=== PATIENT | female | born 1990 | race American Indian/Alaskan Native ===

== ENCOUNTER 2020-06-14 16:15 | Inpatient (IN) | payer BC ==
[2020-06-14] MEDS ORDERED: D5LR W/KCL 20 MEQ 20 MEQ/1,000 ML BAG IV SCH (17:00)
[2020-06-14] MEDS ORDERED: ALUM-MAG HYDROXIDE-SIMETHICONE 200-200-20MG/5ML ORAL LIQD 30 ML PO PRN (19:07)
[2020-06-14 20:15] LABS: Basophils % (Auto) 0.2 % (0.0-1.8); Eosinophils % (Auto) 0.2 % (0.0-4.3); Hematocrit 35.1 % (30.3-42.9); Hemoglobin 11.5 gm/dl (10.1-14.3); Lymphocytes # (Auto) 1.1 K/mm3 (1.2-5.4); Lymphocytes % (Auto) 17.9 % (13.4-35.0); Mean Corpuscular HGB Conc 33 % (30-34); Mean Corpuscular Volume 76 fl (79-97); Monocytes # (Auto) 0.6 K/mm3 (0.0-0.8); Monocytes % (Auto) 9.4 % (0.0-7.3); Platelet Count 239 K/mm3 (140-440)
[2020-06-14] MEDS: LIDOCAINE VISCOUS 2% 15 ML ORAL LIQD PO PRN (20:24)
--- NOTE | 2020-06-14 20:24 | Ultrasound Report ---
OB Ultrasound HISTORY: Hyperemesis, 15 wks, Viability. TECHNIQUE: Grayscale and color imaging performed. COMPARISON: None FINDINGS: Transabdominal imaging was performed. There is a single viable intrauterine gestation with breech presentation. Heart rate is 147 bpm. Plac enta is seen along the fundus. Overall EGA of the fetus is 15 weeks and 4 days by ultrasound with est imated delivery date of 12/02/2020. These findings compare with a clinical gestational age of 15 weeks and 3 days. The cervical length is 4.4 cm. No anatomic survey was performed. MIGUEL is subjectively wit hin normal limits. There is a large fibroid left of midline with heterogeneous appearance and measuring up to 10 cm in m aximal dimension. IMPRESSION: 1. Single viable intrauterine gestation. 2. Large fibroid left of midline. Signer Name: Campbell Us MD Signed: 06/14/2020 8:19 PM Workstation Name: [id number]
[2020-06-14] MEDS: D5W/LACTATED RINGERS 1,000 ML IV SCH ×2 (20:27→23:41)
[2020-06-14] MEDS: METOCLOPRAMIDE 10 MG/2 ML INJ IV SCH (20:28)
[2020-06-14 20:32] LABS: Alanine Aminotransferase 81 units/L (7-56); Albumin 3.1 g/dL (3.9-5); Blood Urea Nitrogen 3 mg/dL (7-17); Calcium 9.2 mg/dL (8.4-10.2); Hemolysis Index 142
[2020-06-14] MEDS: PROMETHAZINE 25 MG RECT SUPP PR SCH (20:32)
[2020-06-14 20:40] LABS: BUN/Creatinine Ratio 8
[2020-06-14 20:56] LABS: Hepatitis B Surface Antigen Non-Reactive (Negative); Hepatitis C Virus Antibody Non-Reactive (NonReactive)
[2020-06-14] MEDS: POTASSIUM CHLORIDE 10 MEQ 10 MEQ/100 ML BAG IV SCH ×2 (22:15→23:41)
[2020-06-15] MEDS: PROMETHAZINE 25 MG RECT SUPP PR SCH ×5 (00:04→21:30)
[2020-06-15] MEDS: METOCLOPRAMIDE 10 MG/2 ML INJ IV SCH ×5 (00:04→21:30)
[2020-06-15] MEDS: POTASSIUM CHLORIDE 10 MEQ 10 MEQ/100 ML BAG IV SCH ×5 (01:13→23:35)
[2020-06-15 01:19] LABS: Bacteria,Urine 1+ /HPF (Negative); Bilirubin,Urine NEG (Negative); Blood,Urine NEG (Negative); Color,Urine Amber (Yellow); Mucus,Urine 3+ /HPF
--- NOTE | 2020-06-15 08:30 | History and Physical Report ---
History of Present Illness Date of examination: 06/15/20 Date of admission: 06/14/20 17:23 Chief complaint: Sent from office for nausea and vomiting without relief from Zofran pump History of present illness: Pt is a 29 yo at 15w4d EGA who presents from [facility] for management of hyperemesis gravidarum. She reports persistent vomiting not relie patsy by Zofran pump or Scopolamine patch. IV Reglan has provided some relief, as has rectal Phenergan. She has lost 9 pounds this . She has received D5LR overnight, as well as IV Reglan and MD Phenergan, with no episodes of vomiting overnight. She is currently eating ice chips. Past History Past Medical History: no pertinent history Past Surgical History: no surgical history Family/Genetic History: none Social history: no significant social history - Obstetrical History Expected Date of Delivery: 12/03/20 Actual Gestation: 15 Week(s) 4 Day(s) : 3 Para: 0 Hx # Term Pregnancies: 0 Number of Pregnancies: 0 Spontaneous Abortions: 0 Induced : 2 Number of Living Children: 0 Medications and Allergies Allergies Allergy/AdvReac Type Severity Reaction Status Date / Time No Known Allergies Allergy Verified 07/30/14 10:24 Home Medications Medication Instructions Recorded Confirmed Last Taken Type No Known Home Medications [No 07/30/14 07/30/14 Unknown History Reported Home Medications] Active Meds: Active Medications Al Hydrox/Mg Hydrox/Simethicone (Alum-Mag Hydroxide-Simethicone [phone]/5ml Oral Liqd 30 Ml) 15 ml PO Q4H PRN PRN Reason: Indigestion Bisacodyl (Bisacodyl 10 Mg Rect Supp) 10 mg MD QDAY PRN PRN Reason: Constipation Last Admin: 06/14/20 22:33 Dose: 10 mg Documented by: Dextrose/Lactated Ringer's (D5lr) 1,000 mls @ 500 mls/hr IV DIRECT ADITYA Stop: 06/15/20 18:59 Last Admin: 06/14/20 23:41 Dose: 500 mls/hr Documented by: Dextrose/Lactated Ringer's (D5lr) 1,000 mls @ 150 mls/hr IV DIRECT ADITYA Lidocaine HCl (Lidocaine Viscous 2% 15 Ml Oral Liqd) 15 ml PO Q8HR PRN PRN Reason: Mouth Pain Last Admin: 06/14/20 20:24 Dose: 15 ml Documented by: Metoclopramide HCl (Metoclopramide 10 Mg/2 Ml Inj) 10 mg IV Q6H [facility] Last Admin: 06/15/20 02:52 Dose: 10 mg Documented by: Multivitamins/Iron/Calcium ( Wst14-Yt Fumarate-Folic Acid Vit Tab) 1 each PO QDAY [facility] Ondansetron HCl (Ondansetron 4 Mg/2 Ml Inj) 4 mg IV Q6H PRN PRN Reason: N/V unrelieved by Ailyn Promethazine HCl (Promethazine 25 Mg Rect Supp) 25 mg MD Q6H [facility] Last Admin: 06/15/20 02:52 Dose: 25 mg Documented by: Review of Systems All systems: negative Ears, nose, mouth and throat: sore throat (secondary to vomiting) Cardiovascular: no chest pain Respiratory: no shortness of breath Gastrointestinal: no vomiting (none today), no hematemesis (a few days ago, not presently) Genitourinary: no vaginal bleeding, no vaginal discharge, no leakage of fluid, no contractions - Vital Signs Vital signs: Vital Signs Temp Pulse Resp BP Pulse Ox 98.8 F 94 H 18 116/60 100 06/14/20 20:45 06/14/20 20:45 06/14/20 20:45 06/14/20 20:45 06/14/20 20:45 Temp Pulse Resp BP Pulse Ox 98.0 F 74 17 110/66 99 06/15/20 06:20 06/15/20 06:20 06/15/20 06:20 06/15/20 06:20 06/15/20 06:20 - Physical Exam Abdomen: Positive: soft Uterus: Positive: enlarged (16 weeks) Extremities: Positive: normal Results Result Diagrams: 06/14/20 19:05 06/15/20 07:26 Abnormal lab results 06/14/20 06/14/20 06/15/20 Range/Units 19:05 19:05 07:26 MCV 76 L (79-97) fl MCH 25 L (28-32) pg RDW 17.0 H (13.2-15.2) % [place] % (Auto) 9.4 H (0.0-7.3) % Lymph # (Auto) 1.1 L (1.2-5.4) K/mm3 Seg Neutrophils % 72.3 H (40.0-70.0) % Sodium 136 L (137-145) mmol/L Potassium 3.0 L 2.8 L* (3.6-5.0) mmol/L BUN 3 L (7-17) mg/dL Creatinine 0.4 L (0.6-1.2) mg/dL AST 69 H (5-40) units/L ALT 81 H (7-56) units/L Albumin 3.1 L (3.9-5) g/dL All other labs normal. Assessment and Plan A: 29 yo at 15w4d EGA Hyperemesis gravidarum Potassium deficiency s/p repletion therapy Vital signs stable P: Continue IV Reglan and MD Phenergan, IV fluids Ketones q12hr Repeat Potassium lab Closely monitor clinical status
[2020-06-15] MEDS: LIDOCAINE VISCOUS 2% 15 ML ORAL LIQD PO PRN (08:50)
[2020-06-15] MEDS: ONDANSETRON 4 MG/2 ML INJ IV PRN (12:00)
[2020-06-15] MEDS: D5W/LACTATED RINGERS 1,000 ML IV SCH (15:27)
[2020-06-16] MEDS: POTASSIUM CHLORIDE 10 MEQ 10 MEQ/100 ML BAG IV SCH ×5 (00:45→15:03)
[2020-06-16] MEDS: METOCLOPRAMIDE 10 MG/2 ML INJ IV SCH ×6 (05:53→22:30)
[2020-06-16] MEDS: PROMETHAZINE 25 MG RECT SUPP PR SCH ×4 (05:53→18:02)
[2020-06-16] MEDS: D5W/LACTATED RINGERS 1,000 ML IV SCH (07:42)
[2020-06-16] MEDS: PRENATAL VIT27-FE FUMARATE-FOLIC ACID VIT TAB PO SCH ×2 (08:23→10:50)
[2020-06-16] MEDS: LIDOCAINE VISCOUS 2% 15 ML ORAL LIQD PO PRN (09:23)
[2020-06-16] MEDS: ONDANSETRON 4 MG/2 ML INJ IV PRN (09:37)
[2020-06-16 10:13] LABS: Alanine Aminotransferase 85 units/L (7-56); Albumin 2.7 g/dL (3.9-5); Calcium 8.6 mg/dL (8.4-10.2); Hemolysis Index 2
[2020-06-16 10:14] LABS: BUN/Creatinine Ratio 3; Blood Urea Nitrogen < 1 mg/dL (7-17)
[2020-06-16] MEDS ORDERED: FLEET ENEMA PR ONE (11:50)
--- NOTE | 2020-06-16 11:50 | Progress Note ---
Subjective - Subjective Date of service: 06/16/20 Objective - Vital Signs Vital Signs: Vital Signs - 12hr 06/16/20 06/16/20 06/16/20 01:36 05:51 08:33 Temperature 98.6 F 99.0 F 98.8 F Pulse Rate 83 84 72 Respiratory 18 16 18 Rate Blood Pressure 103/60 98/61 93/55 O2 Sat by Pulse 99 97 96 Oximetry - Labs Labs: Abnormal Labs 06/14/20 06/14/20 06/15/20 19:05 19:05 07:26 MCV 76 L MCH 25 L RDW 17.0 H [place] % (Auto) 9.4 H Lymph # (Auto) 1.1 L Seg Neutrophils % 72.3 H Sodium 136 L Potassium 3.0 L 2.8 L* BUN 3 L Creatinine 0.4 L Glucose AST 69 H ALT 81 H Total Protein Albumin 3.1 L 06/15/20 06/16/20 06/16/20 15:37 07:35 09:30 MCV MCH RDW [place] % (Auto) Lymph # (Auto) Seg Neutrophils % Sodium 133 L Potassium 2.6 L* 2.8 L* 3.2 L BUN < 1 L Creatinine 0.4 L Glucose 102 H AST 47 H ALT 85 H Total Protein 5.8 L Albumin 2.7 L Laboratory Results - last 24 hr 06/15/20 06/15/20 06/15/20 15:37 22:00 Unknown Sodium Potassium 2.6 L* Chloride Carbon Dioxide Anion Gap BUN Creatinine Estimated GFR BUN/Creatinine Ratio Glucose Calcium Total Bilirubin AST ALT Alkaline Phosphatase Total Protein Albumin Albumin/Globulin Ratio Urine Ketones Negative 80 06/16/20 06/16/20 07:35 09:30 Sodium 133 L Potassium 2.8 L* 3.2 L Chloride 100.0 Carbon Dioxide 27 Anion Gap 9 BUN < 1 L Creatinine 0.4 L Estimated GFR > 60 BUN/Creatinine Ratio 3 Glucose 102 H Calcium 8.6 Total Bilirubin 0.20 AST 47 H ALT 85 H Alkaline Phosphatase 59 Total Protein 5.8 L Albumin 2.7 L Albumin/Globulin Ratio 0.9 Urine Ketones
[2020-06-16] MEDS: MAGNESIUM HYDROXIDE (MOM) ORAL LIQD UDC PO PRN (13:24)
[2020-06-16] MEDS: HYDROCORTISONE SOD SUCC 100 MG/2 ML VIAL IV SCH ×2 (15:03→22:11)
[2020-06-16] MEDS ORDERED: TERBUTALINE 1 MG/1 ML INJ SUB-Q PRN (20:08)
[2020-06-16] MEDS ORDERED: BUTORPHANOL 2 MG/1 ML INJ IV PRN (20:13)
[2020-06-16] MEDS ORDERED: TERBUTALINE 1 MG/1 ML INJ ONE (20:16)
[2020-06-16 21:02] LABS: Alanine Aminotransferase 88 units/L (7-56); Albumin 2.8 g/dL (3.9-5); Calcium 9.1 mg/dL (8.4-10.2); Hemolysis Index 25
[2020-06-16 21:04] LABS: BUN/Creatinine Ratio 2; Blood Urea Nitrogen 1 mg/dL (7-17)
[2020-06-17] MEDS: PROMETHAZINE 25 MG RECT SUPP PR SCH ×4 (02:49→23:00)
[2020-06-17] MEDS ORDERED: MORPHINE 2 MG/1 ML INJ IM ONE (07:53)
[2020-06-17] MEDS ORDERED: MORPHINE 4 MG/1 ML INJ ONE (07:56)
[2020-06-17] MEDS: HYDROCORTISONE SOD SUCC 100 MG/2 ML VIAL IV SCH ×2 (08:32→22:30)
[2020-06-17] MEDS: METOCLOPRAMIDE 10 MG/2 ML INJ IV SCH ×2 (12:07→20:20)
[2020-06-17] MEDS: PRENATAL VIT27-FE FUMARATE-FOLIC ACID VIT TAB PO SCH (12:08)
--- NOTE | 2020-06-17 14:59 | Progress Note ---
Assessment and Plan A: IUP at 15w6d Hyperemesis- much improved Constipation- still without bowel movement Coronavirus 19 Positive- Asymptomatic at this time P: GI consult optimize meds to relieve constipation Restart IV Hold PICC line placement for now Continue to monitor clinic status Subjective - Subjective Date of service: 06/17/20 Principal diagnosis: 1) IUP at 15w6d 2) Hyperemesis 3) Constipation Interval history: Pt continues to report no bowel movement other than "3 hill" over the past four weeks. She does report flatus. She reports performing an emema prior to hospitalization. She has received a Dulcolax suppository on 06/14/19 and one dose of milk of magnesia on 06/16/19. She then experienced cramping which she was concerned were contractions. She was transferred to labor and delivery where she was observed for over 12 hours with no bleeding and a closed cervix. She has been transferred back to the mother baby floor. Overnight, her IV infiltrated and she has not received any IV antiemetics since then, but has not had any episodes of emesis. She has tolerated crackers and sips of water thus far. Objective - Vital Signs Vital Signs: Vital Signs - 12hr 06/17/20 06/17/20 06/17/20 03:01 03:06 03:11 Temperature Pulse Rate 89 96 H 82 Pulse Rate [ Apical] Respiratory Rate Blood Pressure Blood Pressure [Right] O2 Sat by Pulse 95 94 96 Oximetry 06/17/20 06/17/20 06/17/20 03:14 03:16 03:21 Temperature Pulse Rate 86 77 96 H Pulse Rate [ Apical] Respiratory Rate Blood Pressure Blood Pressure [Right] O2 Sat by Pulse 94 94 95 Oximetry 06/17/20 06/17/20 06/17/20 03:26 03:27 03:31 Temperature Pulse Rate 90 88 84 Pulse Rate [ Apical] Respiratory Rate Blood Pressure Blood Pressure [Right] O2 Sat by Pulse 95 93 95 Oximetry 06/17/20 06/17/20 06/17/20 03:36 03:40 03:41 Temperature Pulse Rate 87 78 87 Pulse Rate [ Apical] Respiratory Rate Blood Pressure Blood Pressure [Right] O2 Sat by Pulse 95 94 95 Oximetry 06/17/20 06/17/20 06/17/20 03:46 03:51 03:56 Temperature Pulse Rate 83 70 80 Pulse Rate [ Apical] Respiratory Rate Blood Pressure Blood Pressure [Right] O2 Sat by Pulse 96 94 96 Oximetry 06/17/20 06/17/20 06/17/20 04:01 04:06 04:11 Temperature Pulse Rate 84 81 78 Pulse Rate [ Apical] Respiratory Rate Blood Pressure Blood Pressure [Right] O2 Sat by Pulse 96 98 95 Oximetry 06/17/20 06/17/20 06/17/20 04:16 04:21 04:26 Temperature Pulse Rate 84 83 80 Pulse Rate [ Apical] Respiratory Rate Blood Pressure Blood Pressure [Right] O2 Sat by Pulse 96 96 96 Oximetry 06/17/20 06/17/20 06/17/20 04:31 04:33 04:36 Temperature Pulse Rate 77 89 83 Pulse Rate [ Apical] Respiratory Rate Blood Pressure 109/72 Blood Pressure [Right] O2 Sat by Pulse 95 97 Oximetry 06/17/20 06/17/20 06/17/20 04:41 04:46 04:51 Temperature Pulse Rate 84 81 81 Pulse Rate [ Apical] Respiratory Rate Blood Pressure Blood Pressure [Right] O2 Sat by Pulse 97 97 96 Oximetry 06/17/20 06/17/20 06/17/20 04:56 05:01 05:06 Temperature Pulse Rate 78 74 78 Pulse Rate [ Apical] Respiratory Rate Blood Pressure Blood Pressure [Right] O2 Sat by Pulse 96 96 96 Oximetry 06/17/20 06/17/20 06/17/20 05:11 05:16 05:21 Temperature Pulse Rate 76 75 82 Pulse Rate [ Apical] Respiratory Rate Blood Pressure Blood Pressure [Right] O2 Sat by Pulse 96 96 96 Oximetry 06/17/20 06/17/20 06/17/20 05:26 05:31 05:36 Temperature Pulse Rate 73 76 86 Pulse Rate [ Apical] Respiratory Rate Blood Pressure Blood Pressure [Right] O2 Sat by Pulse 97 96 97 Oximetry 06/17/20 06/17/20 06/17/20 05:37 05:41 05:52 Temperature Pulse Rate 85 84 86 Pulse Rate [ Apical] Respiratory Rate Blood Pressure Blood Pressure [Right] O2 Sat by Pulse 91 97 99 Oximetry 06/17/20 06/17/20 06/17/20 05:57 05:59 06:02 Temperature Pulse Rate 100 H 81 81 Pulse Rate [ Apical] Respiratory Rate Blood Pressure Blood Pressure [Right] O2 Sat by Pulse 97 94 96 Oximetry 06/17/20 06/17/20 06/17/20 06:07 06:12 06:17 Temperature Pulse Rate 76 77 75 Pulse Rate [ Apical] Respiratory Rate Blood Pressure Blood Pressure [Right] O2 Sat by Pulse 97 97 96 Oximetry 06/17/20 06/17/20 06/17/20 06:22 06:27 06:32 Temperature Pulse Rate 81 88 84 Pulse Rate [ Apical] Respiratory Rate Blood Pressure Blood Pressure [Right] O2 Sat by Pulse 97 97 96 Oximetry 06/17/20 06/17/20 06/17/20 06:35 06:37 06:42 Temperature Pulse Rate 86 89 95 H Pulse Rate [ Apical] Respiratory Rate Blood Pressure Blood Pressure [Right] O2 Sat by Pulse 94 98 96 Oximetry 06/17/20 06/17/20 06/17/20 06:47 06:52 06:57 Temperature Pulse Rate 86 88 89 Pulse Rate [ Apical] Respiratory Rate Blood Pressure Blood Pressure [Right] O2 Sat by Pulse 96 97 98 Oximetry 06/17/20 06/17/20 06/17/20 07:02 07:07 07:10 Temperature Pulse Rate 82 86 86 Pulse Rate [ Apical] Respiratory Rate Blood Pressure Blood Pressure [Right] O2 Sat by Pulse 99 99 92 Oximetry 06/17/20 06/17/20 06/17/20 07:12 07:17 07:22 Temperature Pulse Rate 88 99 H 84 Pulse Rate [ Apical] Respiratory Rate Blood Pressure Blood Pressure [Right] O2 Sat by Pulse 97 97 97 Oximetry 06/17/20 06/17/20 06/17/20 07:27 07:32 07:37 Temperature Pulse Rate 90 90 92 H Pulse Rate [ Apical] Respiratory Rate Blood Pressure Blood Pressure [Right] O2 Sat by Pulse 97 97 96 Oximetry 06/17/20 06/17/20 06/17/20 07:42 07:47 07:52 Temperature Pulse Rate 92 H 91 H 92 H Pulse Rate [ Apical] Respiratory Rate Blood Pressure Blood Pressure [Right] O2 Sat by Pulse 96 96 96 Oximetry 06/17/20 06/17/20 06/17/20 07:57 08:02 08:17 Temperature Pulse Rate 96 H 107 H 85 Pulse Rate [ Apical] Respiratory Rate Blood Pressure 111/71 Blood Pressure [Right] O2 Sat by Pulse 96 98 Oximetry 06/17/20 06/17/2021 08:19 09:54 10:00 Temperature 98.0 F Pulse Rate 85 Pulse Rate [ 84 Apical] Respiratory 18 18 18 Rate Blood Pressure Blood Pressure 111/71 [Right] O2 Sat by Pulse 97 Oximetry 06/17/20 06/17/20 06/17/20 10:05 10:10 10:15 Temperature Pulse Rate 74 84 87 Pulse Rate [ Apical] Respiratory Rate Blood Pressure Blood Pressure [Right] O2 Sat by Pulse 97 97 97 Oximetry 06/17/20 06/17/20 06/17/20 10:20 10:25 10:30 Temperature Pulse Rate 82 84 91 H Pulse Rate [ Apical] Respiratory Rate Blood Pressure Blood Pressure [Right] O2 Sat by Pulse 98 96 98 Oximetry 06/17/20 06/17/20 06/17/20 10:35 10:40 10:45 Temperature Pulse Rate 78 79 92 H Pulse Rate [ Apical] Respiratory Rate Blood Pressure Blood Pressure [Right] O2 Sat by Pulse 98 96 97 Oximetry 06/17/20 06/17/20 06/17/20 10:50 10:55 11:00 Temperature Pulse Rate 83 76 82 Pulse Rate [ Apical] Respiratory Rate Blood Pressure Blood Pressure [Right] O2 Sat by Pulse 97 98 96 Oximetry 06/17/20 06/17/20 06/17/20 11:05 11:10 11:15 Temperature Pulse Rate 82 86 74 Pulse Rate [ Apical] Respiratory Rate Blood Pressure Blood Pressure [Right] O2 Sat by Pulse 98 97 96 Oximetry 06/17/20 06/17/20 06/17/20 11:20 11:25 11:30 Temperature Pulse Rate 97 H 79 92 H Pulse Rate [ Apical] Respiratory Rate Blood Pressure Blood Pressure [Right] O2 Sat by Pulse 97 97 97 Oximetry 06/17/20 13:05 Temperature 98.5 F Pulse Rate 72 Pulse Rate [ Apical] Respiratory 16 Rate Blood Pressure Blood Pressure 123/81 [Right] O2 Sat by Pulse 100 Oximetry - Exam Breasts: deferred Abdomen: Present: soft - Labs Labs: Abnormal Labs 06/14/20 06/14/20 06/15/20 19:05 19:05 07:26 MCV 76 L MCH 25 L RDW 17.0 H [place] % (Auto) 9.4 H Lymph # (Auto) 1.1 L Seg Neutrophils % 72.3 H Sodium 136 L Potassium 3.0 L 2.8 L* BUN 3 L Creatinine 0.4 L Glucose AST 69 H ALT 81 H Total Protein Albumin 3.1 L Coronavirus (PCR) 06/15/20 06/16/20 06/16/20 15:37 07:35 09:30 MCV MCH RDW [place] % (Auto) Lymph # (Auto) Seg Neutrophils % Sodium 133 L Potassium 2.6 L* 2.8 L* 3.2 L BUN < 1 L Creatinine 0.4 L Glucose 102 H AST 47 H ALT 85 H Total Protein 5.8 L Albumin 2.7 L Coronavirus (PCR) 06/16/20 06/16/20 20:26 Unknown MCV MCH RDW [place] % (Auto) Lymph # (Auto) Seg Neutrophils % Sodium Potassium 3.5 L BUN 1 L Creatinine 0.5 L Glucose 124 H AST 52 H ALT 88 H Total Protein 5.6 L Albumin 2.8 L Coronavirus (PCR) Positive A Laboratory Results - last 24 hr 06/16/20 06/16/20 06/17/20 20:26 Unknown 12:10 Sodium 137 Potassium 3.5 L Chloride 103.2 Carbon Dioxide 23 Anion Gap 14 BUN 1 L Creatinine 0.5 L Estimated GFR > 60 BUN/Creatinine Ratio 2 Glucose 124 H Calcium 9.1 Total Bilirubin 0.20 AST 52 H ALT 88 H Alkaline Phosphatase 66 Total Protein 5.6 L Albumin 2.8 L Albumin/Globulin Ratio 1.0 Urine Ketones Neg Coronavirus (PCR) Positive A
[2020-06-17] MEDS: ONDANSETRON 4 MG/2 ML INJ IV PRN (16:59)
[2020-06-17] MEDS: D5W/LACTATED RINGERS 1,000 ML IV SCH (17:23)
[2020-06-18] MEDS: D5W/LACTATED RINGERS 1,000 ML IV SCH ×4 (01:35→21:27)
[2020-06-18] MEDS: PROMETHAZINE 25 MG RECT SUPP PR SCH ×4 (05:00→23:38)
[2020-06-18] MEDS: METOCLOPRAMIDE 10 MG/2 ML INJ IV SCH ×4 (05:45→17:38)
[2020-06-18] MEDS: HYDROCORTISONE SOD SUCC 100 MG/2 ML VIAL IV SCH ×3 (06:15→23:02)
[2020-06-18] MEDS: MAGNESIUM HYDROXIDE (MOM) ORAL LIQD UDC PO PRN (08:46)
[2020-06-18] MEDS ORDERED: MAGNESIUM CITRATE 300 ML ORAL LIQD PO PRN (09:26)
[2020-06-18] MEDS: PRENATAL VIT27-FE FUMARATE-FOLIC ACID VIT TAB PO SCH (10:39)
--- NOTE | 2020-06-18 12:27 | Progress Note ---
Assessment and Plan A: IUP at 16w0d Hyperemesis- much improved Constipation- still without bowel movement Coronavirus 19 Positive- Asymptomatic at this time P: GI consult optimize meds to relieve constipation Continue to monitor clinical status Subjective - Subjective Date of service: 06/18/20 Principal diagnosis: 1) IUP at 15w6d 2) Consitpation 3) Hyperemesis Interval history: Pt feels she "has taken a step backward" since yesterday with emesis four times. She reports that she is passing more flatus but has had no bowel movement. She has been ambulating minimally, only to the bathroom. She denies obstetric compl aints. She drank some prune juice earlier. Patient reports: no new complaints, no loss of fluid, no vaginal bleeding, no contractions Objective - Vital Signs Vital Signs: Vital Signs - 12hr 06/18/20 06/18/20 06/18/20 01:22 05:26 08:15 Temperature 98.1 F 98.4 F 98.4 F Pulse Rate 74 74 80 Respiratory 20 20 18 Rate Blood Pressure 110/71 106/66 O2 Sat by Pulse 95 97 Oximetry 06/18/20 08:17 Temperature Pulse Rate 78 Respiratory Rate Blood Pressure 121/77 O2 Sat by Pulse 96 Oximetry - Exam Breasts: deferred Abdomen: Present: soft Extremities: normal - Labs Labs: Abnormal Labs 06/14/20 06/14/20 06/15/20 19:05 19:05 07:26 MCV 76 L MCH 25 L RDW 17.0 H [place] % (Auto) 9.4 H Lymph # (Auto) 1.1 L Seg Neutrophils % 72.3 H Sodium 136 L Potassium 3.0 L 2.8 L* BUN 3 L Creatinine 0.4 L Glucose AST 69 H ALT 81 H Total Protein Albumin 3.1 L Coronavirus (PCR) 06/15/20 06/16/20 06/16/20 15:37 07:35 09:30 MCV MCH RDW [place] % (Auto) Lymph # (Auto) Seg Neutrophils % Sodium 133 L Potassium 2.6 L* 2.8 L* 3.2 L BUN < 1 L Creatinine 0.4 L Glucose 102 H AST 47 H ALT 85 H Total Protein 5.8 L Albumin 2.7 L Coronavirus (PCR) 06/16/20 06/16/20 20:26 Unknown MCV MCH RDW [place] % (Auto) Lymph # (Auto) Seg Neutrophils % Sodium Potassium 3.5 L BUN 1 L Creatinine 0.5 L Glucose 124 H AST 52 H ALT 88 H Total Protein 5.6 L Albumin 2.8 L Coronavirus (PCR) Positive A Laboratory Results - last 24 hr 06/17/20 12:10 Urine Ketones Neg
[2020-06-18] MEDS: LACTULOSE 20 GM/30 ML ORAL LIQD PO SCH ×2 (15:39→21:31)
[2020-06-18] MEDS ORDERED: BUTORPHANOL 2 MG/1 ML INJ IV ONE (21:36)
--- NOTE | 2020-06-18 21:54 | Event Note ---
Date: 06/18/20 Contacted multiple times. Initially, contacted by pt's nurse with report that pt's mother requesting an "internal ultrasound" and patient was not responding to the line of questioning. A second call was placed by design drafter chief mary pt is now speaking and reports that she is feeling pain at the bottom of her stomach similar to the pain she felt when she was having contractions earlier in her admission. She is concerned that there may be an issue with the baby or that she may be having contractions and desires further evaluation. She denies any va ginal bleeding or leakage of fluid. She is also concerned because she feels that she has stopped passing flatus and "cannot recall" the last time she did. Plan to order a ultrasound with cervical length and an abdominal ultrasound.
[2020-06-19] MEDS: METOCLOPRAMIDE 10 MG/2 ML INJ IV SCH ×2 (00:28→05:37)
--- NOTE | 2020-06-19 01:11 | Ultrasound Report ---
ULTRASOUND ABDOMEN, COMPLETE INDICATION: nausea, constipation, 16 wks . COMPARISON: None available. FINDINGS: Pancreas: The body and head appear unremarkable. Pancreatic tail was not visualized.. Abdominal Aorta: Normal. IVC: Normal. Liver: Normal. Gallbladder: Large amount of sludge is seen within the gallbladder. I cannot exclude tiny gallstones within the sludge. There is no abnormal gallbladder distention or gallbladder wall thickening however . Bile ducts: Abnormal Common Bile Duct measures 7) mm. Right Kidney: Slight fullness of the collecting system.. No renal mass Left Kidney: Slight fullness of the collecting system. no renal mass Spleen: Normal. Free fluid: None. Additional Findings: None. IMPRESSION: 1. The gallbladder contains a large amount of sludge. I cannot exclude tiny sand like stones within t he sludge. However, I do not see any suggestion of acute cholecystitis. No gallbladder distention or gallbladder wall thickening noted. 2. There is mild dilatation of the common bile duct measuring 7 mm. Please correlate with liver enzym es. 3. Slight fullness of both intrarenal collecting systems without definitive hydronephrosis. Signer Name: Vanna Lindsey MD Signed: 06/19/2020 1:07 AM Workstation Name: [id number]
--- NOTE | 2020-06-19 01:34 | Ultrasound Report ---
ULTRASOUND OBSTETRIC INDICATION / CLINICAL INFORMATION: IUP at 16 wks, well being. Clinical Gestational Age (GA) in weeks, days: 16 weeks 0 days TECHNIQUE: Transabdominal. Transvaginal COMPARISON: Prior ultrasound 06/14/2020 FINDINGS: NUMBER: Single PRESENTATION: breech PLACENTA: posterior/left lateral and free of the os. MATERNAL ADNEXA: No significant abnormality. AMNIOTIC FLUID VOLUME: Grossly normal AMNIOTIC FLUID INDEX (MIGUEL) in cm (if measured): Not measured ANATOMY: Not evaluated MEASUREMENTS: - Biparietal Diameter = 3.3 cm = 16 weeks, 1 days - Head Circumference = 12.5 cm = 16 weeks, 2 days - Abdominal Circumference = 10.1 cm = 16 weeks, 1 days - Femur Length = 1.9 cm = 15 weeks, 5 days - Estimated Weight (in grams, if calculated): 141 g - Heart Rate (beats per minute): 137 ADDITIONAL FINDINGS: Large mass (10 cm) noted to the left of the uterus felt to be most likely a larg e exophytic fibroid. This was noted on prior exam. PERCENTILE ESTIMATED WEIGHT (if calculated): AVERAGE ULTRASOUND AGE (AUA) in weeks, days = 16 weeks 1 day Cervical length: 4.4 cm. Cervix appeared unremarkable. No cervical dilatation or effacement identifie d. IMPRESSION: 1. Single intrauterine with AUA of 16 weeks, 1 days 2. No significant sonographic abnormality. 3. Again noted is 10 cm mass arising from left-sided uterus most likely exophytic uterine fibroid. Signer Name: Vanna Lindsey MD Signed: 06/19/2020 1:29 AM Workstation Name: [id number]
[2020-06-19] MEDS: LACTULOSE 20 GM/30 ML ORAL LIQD PO SCH ×3 (03:14→15:33)
[2020-06-19] MEDS: D5W/LACTATED RINGERS 1,000 ML IV SCH ×3 (05:33→17:43)
[2020-06-19] MEDS: HYDROCORTISONE SOD SUCC 100 MG/2 ML VIAL IV SCH ×5 (08:53→22:00)
[2020-06-19] MEDS: ONDANSETRON 4 MG/2 ML INJ IV PRN (08:53)
--- NOTE | 2020-06-19 09:54 | Progress Note ---
Assessment and Plan A: IUP at 16w1d Constipation- still without bowel movement Hyperemesis- improved New finding of gallbladder sludge on abdominal ultrasound Coronavirus 19 Positive- Asymptomatic at this time P: GI consult to guide treatment of constipation (including inpatient vs outpatient management) and gallbladder sludge Continue to monitor clinical status Subjective - Subjective Date of service: 06/19/20 Principal diagnosis: 1) IUP at 16w1d 2) Consitpation 3) Hyperemesis Interval history: Pt reports emesis overnight and worsening "tightness" of lower abdomen. No bowel movement yet. Overnight, pt had abdominal ultrasound which revealed gallbladder sludge, but no evidence of acute cholecysitis. ultrasound revealed viable fetus with cervix 4.4 cm. Passing minimal flatus this morning. Reports she is unable to tolerate crackers as she was previously. Patient reports: no new complaints, no loss of fluid, no vaginal bleeding, no contractions Objective - Vital Signs Vital Signs: Vital Signs - 12hr 06/19/20 06/19/20 06/19/20 00:36 04:30 08:23 Temperature 98.2 F 98.2 F 98.4 F Pulse Rate 72 68 67 Respiratory 20 18 20 Rate Blood Pressure 119/70 122/75 112/68 O2 Sat by Pulse 97 95 97 Oximetry - Exam Breasts: deferred Abdomen: Present: soft, distention (moderate ) Uterus: Present: normal (gravid) FHR: auscultation normal Extremities: normal - Labs Labs: Abnormal Labs 06/14/20 06/14/20 06/15/20 19:05 19:05 07:26 MCV 76 L MCH 25 L RDW 17.0 H [place] % (Auto) 9.4 H Lymph # (Auto) 1.1 L Seg Neutrophils % 72.3 H Sodium 136 L Potassium 3.0 L 2.8 L* BUN 3 L Creatinine 0.4 L Glucose AST 69 H ALT 81 H Total Protein Albumin 3.1 L Coronavirus (PCR) 06/15/20 06/16/20 06/16/20 15:37 07:35 09:30 MCV MCH RDW [place] % (Auto) Lymph # (Auto) Seg Neutrophils % Sodium 133 L Potassium 2.6 L* 2.8 L* 3.2 L BUN < 1 L Creatinine 0.4 L Glucose 102 H AST 47 H ALT 85 H Total Protein 5.8 L Albumin 2.7 L Coronavirus (PCR) 06/16/20 06/16/20 20:26 Unknown MCV MCH RDW [place] % (Auto) Lymph # (Auto) Seg Neutrophils % Sodium Potassium 3.5 L BUN 1 L Creatinine 0.5 L Glucose 124 H AST 52 H ALT 88 H Total Protein 5.6 L Albumin 2.8 L Coronavirus (PCR) Positive A Laboratory Results - last 24 hr 06/18/20 13:05 Urine Ketones Negative
[2020-06-19] MEDS ORDERED: SIMETHICONE 80 MG CHEW TAB PO PRN (10:01)
[2020-06-19 10:40] LABS: Basophils % (Auto) 0.1 % (0.0-1.8); Hemoglobin 9.5 gm/dl (10.1-14.3); Lymphocytes # (Auto) 0.9 K/mm3 (1.2-5.4); Lymphocytes % (Auto) 7.5 % (13.4-35.0); Mean Corpuscular HGB Conc 33 % (30-34); Mean Corpuscular Volume 76 fl (79-97); Monocytes # (Auto) 1.1 K/mm3 (0.0-0.8); Monocytes % (Auto) 9.3 % (0.0-7.3); Platelet Count 205 K/mm3 (140-440); Red Blood Count 3.82 M/mm3 (3.65-5.03); Red Cell Distribution Width 17.5 % (13.2-15.2)
[2020-06-19 10:47] LABS: Alanine Aminotransferase 119 units/L (7-56); Albumin 2.9 g/dL (3.9-5); Blood Urea Nitrogen 2 mg/dL (7-17); Calcium 8.9 mg/dL (8.4-10.2); Hemolysis Index 24
[2020-06-19 10:55] LABS: BUN/Creatinine Ratio 5
[2020-06-19] MEDS: PROMETHAZINE 25 MG RECT SUPP PR SCH ×3 (11:21→23:19)
[2020-06-19] MEDS: PRENATAL VIT27-FE FUMARATE-FOLIC ACID VIT TAB PO SCH (11:22)
[2020-06-19] MEDS: METOCLOPRAMIDE 10 MG TAB PO SCH ×3 (11:34→21:54)
--- NOTE | 2020-06-19 13:19 | Gastroenterology Consultation ---
History of Present Illness - Reason for Consult Consult date: 06/19/20 constipation Requesting physician: HENRI LEONARD - History of Present Illness The patient is a 29 yo aaf at 16 weeks gestation who has had hyperemesis since onset of and constipation for the past 1+ week. Patient has had poor po intake which fluctuates due to nausea/vomiting episodes. can keep some po intake down which has been stable recently. no bm since admission or the past 6-7 days. Typically has bm's daily prior to new onset of constipation. has tried lactulose, milk of mag, dulcolax etc without bm since being here. feels bloated which she contributes to constipation. Past History Social history: no significant social history Medications and Allergies Allergies Allergy/AdvReac Type Severity Reaction Status Date / Time No Known Allergies Allergy Verified 07/30/14 10:24 Home Medications Medication Instructions Recorded Confirmed Last Taken Type No Known Home Medications [No 07/30/14 06/17/20 Unknown History Reported Home Medications] Active Meds: Active Medications Al Hydrox/Mg Hydrox/Simethicone (Alum-Mag Hydroxide-Simethicone [phone] Oral Liqd 30 Ml) 15 ml PO Q4H PRN PRN Reason: Indigestion Butorphanol Tartrate (Butorphanol 2 Mg/1 Ml Inj) 2 mg IV Q4HR PRN PRN Reason: Labor Pain Last Admin: 06/16/20 23:03 Dose: 2 mg Documented by: Diphenhydramine HCl (Diphenhydramine 50 Mg/Ml Vial) 25 mg IV Q6H PRN PRN Reason: Itching Hydrocortisone Sodium Succinate (Hydrocortisone Sod Succ 100 Mg/2 Ml Vial) 100 mg IV Q8HR ADITYA Last Admin: 06/19/20 09:02 Dose: Not Given Documented by: Dextrose/Lactated Ringer's (D5lr) 1,000 mls @ 150 mls/hr IV DIRECT ADITYA Last Admin: 06/19/20 11:36 Dose: 150 mls/hr Documented by: Lactulose (Lactulose 20 Gm/30 Ml Oral Liqd) 20 gm PO Q6HR ADITYA Last Admin: 06/19/20 09:21 Dose: Not Given Documented by: Lidocaine HCl (Lidocaine Viscous 2% 15 Ml Oral Liqd) 15 ml PO Q8HR PRN PRN Reason: Mouth Pain Last Admin: 06/16/20 09:23 Dose: 15 ml Documented by: Magnesium Hydroxide (Magnesium Hydroxide (Mom) Oral Liqd Udc) 30 ml PO Q8H PRN PRN Reason: Constipation Last Admin: 06/18/20 08:46 Dose: 30 ml Documented by: Metoclopramide HCl (Metoclopramide 10 Mg Tab) 10 mg PO ACHS [facility] Last Admin: 06/19/20 11:34 Dose: 10 mg Documented by: Multivitamins/Iron/Calcium ( Cdc30-Za Fumarate-Folic Acid Vit Tab) 1 each PO QDAY [facility] Last Admin: 06/19/20 11:22 Dose: Not Given Documented by: Ondansetron HCl (Ondansetron 4 Mg/2 Ml Inj) 4 mg IV Q6H PRN PRN Reason: N/V unrelieved by Ailyn Last Admin: 06/19/20 08:53 Dose: 4 mg Documented by: Promethazine HCl (Promethazine 25 Mg Rect Supp) 25 mg MD Q6H [facility] Last Admin: 06/19/20 11:21 Dose: Not Given Documented by: Simethicone (Simethicone 80 Mg Chew Tab) 80 mg PO Q6H PRN PRN Reason: Gas pain Terbutaline Sulfate (Terbutaline 1 Mg/1 Ml Inj) 0.25 mg SUB-Q Q20MIN PRN PRN Reason: Premature Labor Last Admin: 06/16/20 21:55 Dose: 0.25 mg Documented by: Reviewed/updated patient's home and current medications Review of Systems - Review of Systems All systems: negative (per HPI) Exam - Constitutional Vital Signs: Temp Pulse Resp BP Pulse Ox 98.4 F 67 20 112/68 97 06/19/20 08:23 06/19/20 08:23 06/19/20 08:23 06/19/20 08:23 06/19/20 08:23 General appearance: no acute distress - EENT Eyes: PERRL, EOM intact - Respiratory Respiratory effort: normal Respiratory: bilateral: CTA - Cardiovascular Rhythm: regular Heart Sounds: Present: S1 & S2 Extremities: No edema, Full ROM - Gastrointestinal General gastrointestinal: Present: soft, tender (diffuse ttp), normal bowel sounds - Integumentary Integumentary: Present: clear, warm - Neurologic Neurological: alert and oriented x3 - Psychiatric Psychiatric: appropriate mood/affect - Labs CBC & Chem 7: 06/19/20 09:42 06/19/20 09:42 Lab Results: Laboratory Results - last 24 hr 06/18/20 06/19/20 06/19/20 13:05 09:42 09:42 WBC 12.3 H RBC 3.82 Hgb 9.5 L Hct 29.0 L MCV 76 L MCH 25 L MCHC 33 RDW 17.5 H Plt Count 205 Lymph % (Auto) 7.5 L [place] % (Auto) 9.3 H Eos % (Auto) 0.0 Baso % (Auto) 0.1 Lymph # (Auto) 0.9 L [place] # (Auto) 1.1 H Eos # (Auto) 0.0 Baso # (Auto) 0.0 Seg Neutrophils % 83.1 H Seg Neutrophils # 10.2 H Sodium 139 Potassium 3.2 L Chloride 102.6 Carbon Dioxide 26 Anion Gap 14 BUN 2 L Creatinine 0.4 L Estimated GFR > 60 BUN/Creatinine Ratio 5 Glucose 132 H Calcium 8.9 Total Bilirubin 0.20 AST 52 H ALT 119 H Alkaline Phosphatase 64 Total Protein 5.6 L Albumin 2.9 L Albumin/Globulin Ratio 1.1 Urine Ketones Negative - Imaging Ultrasound: report reviewed Assessment and Plan 1. Constipation - discussed with pt; recommend trying miralax BID and I think bm's will begin to occur within a couple days. she feels she can keep miralax down and explained this is typically first line med we recommend in setting of . she is willing to try. If she can keep miralax down, then she does not necessarily need to have bm prior to discharge from gi stand point, but pt and pt's mom feel more comfortable staying here until bm's occur. 2. GB sludge - liver enzymes are elevated which could be due to COVID vs NAFLD as opposed to biliary obstructive process since bilirubin and alk phos normal. would monitor for now.
[2020-06-19] MEDS: diphenhydrAMINE 50 MG/ML VIAL IV PRN ×2 (14:45→23:19)
--- NOTE | 2020-06-19 20:48 | Event Note ---
Date: 06/19/20 RN called on-call physician with note pt had small bowel movement. Continue current management. Begin discharge planning.
[2020-06-19] MEDS ORDERED: POTASSIUM CHLORIDE 10 MEQ 10 MEQ/100 ML BAG IV SCH (21:00)
[2020-06-19] MEDS: POLYETHYLENE GLYCOL 3350 17 GM POWDER PO SCH (21:54)
[2020-06-19] MEDS ORDERED: MULTIPLE VITAMIN IV SCH (23:45)
[2020-06-19] MEDS ORDERED: KCL IV SCH (23:45)
[2020-06-19] MEDS ORDERED: D5LR IV SCH (23:45)
[2020-06-20] MEDS ORDERED: ONDANSETRON 8 MG ODT TAB PO PRN (00:06)
[2020-06-20] MEDS: LIDOCAINE VISCOUS 2% 15 ML ORAL LIQD PO PRN (02:27)
--- NOTE | 2020-06-20 08:05 | Progress Note ---
Assessment and Plan - Patient Problems (1) COVID-19 Current Visit: Yes Status: Acute (2) Hyperemesis Current Visit: Yes Status: Acute Plan to address problem: Discharge patient home Contact [facility] about patient receiving IV nutrients will continue outpatient use of MiraLAX (3) Constipation Current Visit: Yes Status: Acute Subjective - Subjective Date of service: 06/20/20 Principal diagnosis: 1) IUP at 16w1d 2) Consitpation 3) Hyperemesis Interval history: The patient denies any vomiting today. She has previously refused placement of a PICC line. She has been able to tolerate a dose of MiraLAX and is the recommendation for her to continue that as outpatient. Patient reports: no new complaints, no loss of fluid, no vaginal bleeding, no contractions Objective - Vital Signs Vital Signs: Vital Signs - 12hr 06/19/20 06/19/20 06/19/20 20:06 20:30 22:00 Temperature 98.7 F Pulse Rate 61 Pulse Rate [ 80 Apical] Respiratory 18 18 Rate Respiratory 18 Rate [ Generalized] Blood Pressure 100/64 O2 Sat by Pulse 98 Oximetry 06/20/20 04:20 Temperature 98.4 F Pulse Rate 68 Pulse Rate [ Apical] Respiratory 18 Rate Respiratory Rate [ Generalized] Blood Pressure 105/50 O2 Sat by Pulse 95 Oximetry - Labs Labs: Abnormal Labs 06/14/20 06/14/20 06/15/20 19:05 19:05 07:26 WBC Hgb Hct MCV 76 L MCH 25 L RDW 17.0 H Lymph % (Auto) [place] % (Auto) 9.4 H Lymph # (Auto) 1.1 L [place] # (Auto) Seg Neutrophils % 72.3 H Seg Neutrophils # Sodium 136 L Potassium 3.0 L 2.8 L* BUN 3 L Creatinine 0.4 L Glucose AST 69 H ALT 81 H Total Protein Albumin 3.1 L Coronavirus (PCR) 06/15/20 06/16/20 06/16/20 15:37 07:35 09:30 WBC Hgb Hct MCV MCH RDW Lymph % (Auto) [place] % (Auto) Lymph # (Auto) [place] # (Auto) Seg Neutrophils % Seg Neutrophils # Sodium 133 L Potassium 2.6 L* 2.8 L* 3.2 L BUN < 1 L Creatinine 0.4 L Glucose 102 H AST 47 H ALT 85 H Total Protein 5.8 L Albumin 2.7 L Coronavirus (PCR) 06/16/20 06/16/20 06/19/20 20:26 Unknown 09:42 WBC 12.3 H Hgb 9.5 L Hct 29.0 L MCV 76 L MCH 25 L RDW 17.5 H Lymph % (Auto) 7.5 L [place] % (Auto) 9.3 H Lymph # (Auto) 0.9 L [place] # (Auto) 1.1 H Seg Neutrophils % 83.1 H Seg Neutrophils # 10.2 H Sodium Potassium 3.5 L BUN 1 L Creatinine 0.5 L Glucose 124 H AST 52 H ALT 88 H Total Protein 5.6 L Albumin 2.8 L Coronavirus (PCR) Positive A 06/19/20 09:42 WBC Hgb Hct MCV MCH RDW Lymph % (Auto) [place] % (Auto) Lymph # (Auto) [place] # (Auto) Seg Neutrophils % Seg Neutrophils # Sodium Potassium 3.2 L BUN 2 L Creatinine 0.4 L Glucose 132 H AST 52 H ALT 119 H Total Protein 5.6 L Albumin 2.9 L Coronavirus (PCR) Laboratory Results - last 24 hr 06/19/20 06/19/20 09:42 09:42 WBC 12.3 H RBC 3.82 Hgb 9.5 L Hct 29.0 L MCV 76 L MCH 25 L MCHC 33 RDW 17.5 H Plt Count 205 Lymph % (Auto) 7.5 L [place] % (Auto) 9.3 H Eos % (Auto) 0.0 Baso % (Auto) 0.1 Lymph # (Auto) 0.9 L [place] # (Auto) 1.1 H Eos # (Auto) 0.0 Baso # (Auto) 0.0 Seg Neutrophils % 83.1 H Seg Neutrophils # 10.2 H Sodium 139 Potassium 3.2 L Chloride 102.6 Carbon Dioxide 26 Anion Gap 14 BUN 2 L Creatinine 0.4 L Estimated GFR > 60 BUN/Creatinine Ratio 5 Glucose 132 H Calcium 8.9 Total Bilirubin 0.20 AST 52 H ALT 119 H Alkaline Phosphatase 64 Total Protein 5.6 L Albumin 2.9 L Albumin/Globulin Ratio 1.1
--- NOTE | 2020-06-20 08:07 | Discharge Summary ---
Providers - Providers Date of Admission: 06/14/20 17:23 Date of discharge: 06/20/20 Attending physician: HENRI LEONARD 06/14/20 16:26 Consult to Dietitian/Nutrition [CONS] Routine Physician Instructions: Reason For Exam: Reason for Consult: hyper grav Reason for Consult: hyperemesis 06/16/20 11:51 Consult to Case Management [CONS] Routine Services Needed at Discharge: Home Health Services Notified:: [id number] Comment:: patient will require ppn for nutrition 06/17/20 14:55 Consult to Physician [CONS] Routine Comment: Consulting Provider: RADHA CROW Physician Instructions: Reason For Exam: IUP at 15 wks, no bowel movement x 4 wks, hypereme 06/18/20 12:20 Consult to Physician [CONS] Routine Comment: Consulting Provider: JUSTYN ALTMAN Physician Instructions: Reason For Exam: IUP at 15 wks, no bowel movement x 4 wks, hypereme Primary care physician: HENRI LEONARD Hospitalization Reason for admission: other (Hyperemesis gravidarum) Procedure: other (IV fluids and antiemetic therapy) Discharge diagnosis: other (Hyperemesis gravidarum) Hospital course: The patient was admitted with unretractable nausea and vomiting throughout her entire with significant weight loss. Patient failed outpatient oral therapy. She was admitted for IV hydration and IV antiemetic therapy with slow improvement in her symptoms. She reports having a history of chronic constipation which the patient was evaluated by gastroenterology during her hospitalization. It was advised for the patient proceed with a PICC line placement however the patient declined. Condition at discharge: Good Disposition: DC-01 TO HOME OR SELFCARE - Discharge Diagnoses (1) COVID-19 Status: Acute (2) Hyperemesis Status: Acute (3) Constipation Status: Acute Plan - Discharge Medications Prescriptions: Polyethylene Glycol 3350 [Miralax] 238 gm PO BID #1 powder - Provider Discharge Summary Activity: no strenuous exercise Diet: routine Instructions: routine Additional instructions: [] Smoking cessation referral if applicable(refer to patient education folder for contact #) [] Refer to [facility] Booklet Call your doctor immediately for: * Fever > 100.5 * Heavy vaginal bleeding ( >1 pad per hour) * Severe persistent headache * Shortness of breath * Reddened, hot, painful area to leg or breast * - Follow up plan
[2020-06-20] MEDS: METOCLOPRAMIDE 10 MG TAB PO SCH (08:14)
[2020-06-20] MEDS: POLYETHYLENE GLYCOL 3350 17 GM POWDER PO SCH (08:15)
[2020-06-20 13:46] VITALS: BP 122/79
== END 2020-06-20 13:15 | disposition home or self-care (01) | DRG 831 ==
LOC: UNDOADMIN 16:15 → 3A 16:15 → OB 17:23 → LD 06-16 20:11 → OB 06-16 22:14 → LD 06-17 03:00 → OB 06-17 11:44
PROVIDERS: ADMIT Obstetrics & Gynecology; ATTEND Obstetrics & Gynecology
DX: O98.512 Other viral diseases complicating pregnancy, second trimester (principal); U07.1 COVID-19; O21.1 Hyperemesis gravidarum with metabolic disturbance; Z3A.15 15 weeks gestation of pregnancy; K59.00 Constipation, unspecified; O99.612 Diseases of the digestive system complicating pregnancy, second trimester; Z53.29 Procedure and treatment not carried out because of patient's decision for other reasons
CPT/HCPCS: 36415; 76700; 76805; 76817; 80053; 80074; 81001; 82010; 82150; 83690; 84132; 84443; 85025; 93005; G0378; J0595; J1200; J1720; J2270; J2405; J2765; J3105; J3480; J7120; J7121; U0003

== ENCOUNTER 2020-07-22 18:40 | Outpatient (CLI) | payer BC ==
[2020-07-22] MEDS ORDERED: LACTATED RINGERS 1,000 ML IV SCH (19:30)
[2020-07-22 19:41] VITALS: BP 117/73
[2020-07-22 19:51] LABS: Bacteria,Urine 1+ /HPF (Negative); Bilirubin,Urine NEG (Negative); Blood,Urine NEG (Negative); Color,Urine Yellow (Yellow); Mucus,Urine 2+ /HPF
[2020-07-22] MEDS ORDERED: TERBUTALINE 1 MG/1 ML INJ SUB-Q SCH (20:00)
[2020-07-22] MEDS ORDERED: INDOMETHACIN 25 MG CAP PO ONE (21:23)
== END 2020-07-22 22:31 | disposition home or self-care (01) ==
LOC: TRG 18:40 → APU 18:42 → TRG 22:31
PROVIDERS: ATTEND Obstetrics & Gynecology
DX: O26.892 Other specified pregnancy related conditions, second trimester (principal); R25.2 Cramp and spasm; O47.02 False labor before 37 completed weeks of gestation, second trimester; Z3A.20 20 weeks gestation of pregnancy
CPT/HCPCS: 59025; 81001

== ENCOUNTER 2020-08-24 16:00 | Outpatient (CLI) | payer BC ==
[2020-08-24 16:33] VITALS: BP 113/71
[2020-08-24] MEDS ORDERED: LACTATED RINGERS 500 ML IV ONE (16:37)
[2020-08-24 17:18] LABS: Bacteria,Urine 1+ /HPF (Negative); Bilirubin,Urine NEG (Negative); Blood,Urine NEG (Negative); Calcium Oxalate Crystals,Urine 2+; Color,Urine Yellow (Yellow); Mucus,Urine 3+ /HPF
[2020-08-24] MEDS ORDERED: ACETAMINOPHEN 500 MG TAB PO ONE (17:50)
== END 2020-08-24 19:18 | disposition home or self-care (01) ==
LOC: TRG 16:00 → APU 16:06 → TRG 19:18
PROVIDERS: ATTEND Obstetrics & Gynecology
DX: Z34.92 Encounter for supervision of normal pregnancy, unspecified, second trimester (principal); Z3A.25 25 weeks gestation of pregnancy
CPT/HCPCS: 59025; 81001

== ENCOUNTER 2020-12-02 21:19 | Inpatient (IN) | payer BC ==
[2020-12-02] MEDS ORDERED: miSOPROStol 200 MCG TAB PR PRN (22:29)
[2020-12-02] MEDS ORDERED: BUTORPHANOL 2 MG/1 ML INJ IV PRN (22:29)
[2020-12-02] MEDS ORDERED: MINERAL OIL 30 ML ORAL LIQD PO PRN (22:29)
[2020-12-02] MEDS ORDERED: LIDOCAINE (2%) 20 MG/1 ML VIAL 20 ML MDV INFILTRATI ONE (22:29)
[2020-12-02] MEDS ORDERED: LOPERAMIDE 2 MG CAP PO PRN (22:29)
[2020-12-02] MEDS ORDERED: METHYLERGONOVINE MALEATE 0.2 MG/ML VIAL IM PRN (22:29)
[2020-12-02] MEDS ORDERED: OXYTOCIN 10 UNIT/1 ML INJ IM PRN (22:29)
[2020-12-02] MEDS ORDERED: ePHEDrine SULFATE 50 MG/1 ML INJ IV PRN (22:29)
[2020-12-02] MEDS ORDERED: CARBOPROST TROMETHAMINE 250 MCG/1 ML INJ IM PRN (22:29)
[2020-12-02] MEDS ORDERED: TERBUTALINE 1 MG/1 ML INJ SUB-Q PRN (22:29)
[2020-12-02] MEDS ORDERED: LACTATED RINGERS 1,000 ML IV SCH (22:30)
[2020-12-02] MEDS ORDERED: OXYTOCIN DRIP 30 UNITS/500 ML BAG IV SCH ×2 (23:00)
[2020-12-03] MEDS ORDERED: LIDOCAINE (2%) 20 MG/1 ML VIAL 20 ML MDV INFILTRATI ONE (02:56)
--- NOTE | 2020-12-03 03:17 | History and Physical Report ---
History of Present Illness Date of examination: 12/03/20 Date of admission: 12/03/2020 Chief complaint: contractions History of present illness: 30-year-old G1, P0 at 40+0 weeks presents in active labor with cervical dilatation of 4 to 5 cm intact. Her records are currently not available for review. Past History Past Medical History: no pertinent history Past Surgical History: no surgical history Social history: single - Obstetrical History Expected Date of Delivery: 12/03/20 Actual Gestation: 40 Week(s) 0 Day(s) : 1 Para: 0 Hx # Term Pregnancies: 0 Number of Pregnancies: 0 Spontaneous Abortions: 0 Induced : 0 Number of Living Children: 0 Medications and Allergies Allergies Allergy/AdvReac Type Severity Reaction Status Date / Time No Known Allergies Allergy Verified 08/24/20 16:36 Home Medications Medication Instructions Recorded Confirmed Last Taken Type Polyethylene Glycol 3350 [Miralax] 238 gm PO BID #1 powder 06/20/20 Unknown Rx Active Meds: Active Medications Butorphanol Tartrate (Butorphanol 2 Mg/1 Ml Inj) 2 mg IV Q2H PRN PRN Reason: Pain , Severe (7-10) Last Admin: 12/02/20 23:02 Dose: 2 mg Documented by: Carboprost Tromethamine (Carboprost Tromethamine 250 Mcg/1 Ml Inj) 250 mcg IM ONCE PRN PRN Reason: Uterine Bleeding Ephedrine Sulfate (Ephedrine Sulfate 50 Mg/1 Ml Inj) 10 mg IV Q2M PRN PRN Reason: Hypotension Oxytocin/Sodium Chloride (Pitocin/Ns 30 Unit/500ml) 30 units in 500 mls @ 2 mls/hr IV TITR ADITYA; Protocol Lactated Ringer's (Lactated Ringers) 1,000 mls @ 125 mls/hr IV DIRECT ADITYA Oxytocin/Sodium Chloride (Pitocin/Ns 30 Unit/500ml) 30 units in 500 mls @ 40 mls/hr IV TITR ADITYA; Protocol Loperamide HCl (Loperamide 2 Mg Cap) 2 mg PO ONCE PRN PRN Reason: give with Hemabate Methylergonovine Maleate (Methylergonovine Maleate 0.2 Mg/Ml Vial) 0.2 mg IM ONCE PRN PRN Reason: Uterine Bleeding Mineral Oil (Mineral Oil 30 Ml Oral Liqd) 30 ml PO QHS PRN PRN Reason: Constipation Misoprostol (Misoprostol 200 Mcg Tab) 800 mcg HI ONCE PRN PRN Reason: Uterine Bleeding Oxytocin (Oxytocin 10 Unit/1 Ml Inj) 10 unit IM ONCE PRN PRN Reason: Uterine Bleeding Terbutaline Sulfate (Terbutaline 1 Mg/1 Ml Inj) 0.25 mg SUB-Q ONCE PRN PRN Reason: Hyperstimulation/Hypertonicity Review of Systems All systems: negative Genitourinary: pelvic pain, contractions - Vital Signs Vital signs: Vital Signs Temp Pulse Resp BP 98.2 F 76 20 122/81 12/02/20 21:53 12/02/20 21:53 12/02/20 21:53 12/02/20 21:53 Temp Pulse Resp BP Pulse Ox 98.2 F 86 20 114/61 12/02/20 21:53 12/03/20 03:08 12/02/20 23:02 12/03/20 03:08 - Physical Exam Breasts: Positive: deferred Cardiovascular: Regular rate Lungs: Positive: Clear to auscultation Abdomen: Positive: normal appearance Results All other labs normal. Assessment and Plan - Patient Problems (1) Active labor at term Current Visit: Yes Status: Acute Plan to address problem: Admit to labor and delivery
[2020-12-03] MEDS ORDERED: ONDANSETRON 4 MG/2 ML INJ IV PRN (03:25)
[2020-12-03] MEDS ORDERED: PROMETHAZINE 25 MG TAB PO PRN (03:25)
[2020-12-03] MEDS ORDERED: HYDROcodone/ACETAMINOPHEN 5-325 MG TAB PO PRN (03:25)
[2020-12-03] MEDS ORDERED: MAGNESIUM HYDROXIDE (MOM) ORAL LIQD UDC PO PRN (03:25)
[2020-12-03] MEDS ORDERED: ACETAMINOPHEN 325 MG TAB PO PRN (03:25)
[2020-12-03] MEDS ORDERED: diphenhydrAMINE 25 MG CAP PO PRN (03:25)
[2020-12-03] MEDS ORDERED: WITCH HAZEL/ GLYCERIN PAD TP PRN (03:25)
[2020-12-03] MEDS ORDERED: PROMETHAZINE 25 MG RECT SUPP PR PRN (03:25)
[2020-12-03] MEDS ORDERED: LANOLIN/ZINC/DIMETHICONE (LANSINOH) 7 GM TP PRN (03:25)
--- NOTE | 2020-12-03 03:29 | Procedure Note ---
OB Delivery Note - Delivery Date of Delivery: 12/03/20 Surgeon: LASHA ARCOS Estimated blood loss: 100cc - Vaginal Delivery presentation: vertex Delivery position: OA Delivery monitor: external FHT, external uterine Route of delivery: Delivery placenta: spontaneous Delivery cord: 3 umbilical vessels Episiotomy: none Delivery laceration: 2nd degree Delivery repair: vicryl Anesthesia: local Delivery comments: The patient progressed to complete complete +2 and post to deliver a live-born male with Apgars of 8 and 9 weight 7 pounds 0 ounces. After delivery of the head the shoulders delivered without difficulty. The was bulb suction. The cord was clamped and cut x2 and the infant was placed on the patient's abdomen. The placenta delivered spontaneously intact with a three- vessel cord. The patient sustained a midline perineal laceration second-degree. The site was injected with lidocaine 10 cc. The site was repaired in normal fashion with 2-0 Vicryl. Estimated blood loss of 100 mL. - Infant A at 1 minute: 8 at 5 minutes: 9 Gender: Male (Weight 7 pounds 0 ounces)
[2020-12-03 06:12] LABS: Hematocrit 32.5 % (30.3-42.9); Hemoglobin 10.2 gm/dl (10.1-14.3); Mean Corpuscular HGB Conc 31 % (30-34); Mean Corpuscular Volume 72 fl (79-97); Platelet Count 292 K/mm3 (140-440); Red Blood Count 4.54 M/mm3 (3.65-5.03)
[2020-12-03 06:19] LABS: Red Cell Distribution Width 20.3 % (13.2-15.2)
[2020-12-03] MEDS: IBUPROFEN 600 MG TAB PO SCH ×2 (09:43→17:37)
[2020-12-03 15:58] LABS: Hematocrit 30.9 % (30.3-42.9); Hemoglobin 9.8 gm/dl (10.1-14.3)
[2020-12-04] MEDS: IBUPROFEN 600 MG TAB PO SCH ×4 (00:14→23:53)
--- NOTE | 2020-12-04 13:43 | Progress Note ---
Assessment and Plan - Patient Problems (1) Status post normal vaginal delivery Current Visit: Yes Status: Acute Plan to address problem: Continue routine PP orders Anticipate d/c home in tomorrow (2) Anemia Current Visit: Yes Status: Acute Qualifiers: Anemia type: iron deficiency Plan to address problem: Asymptomatic Increase iron rich foods into diet Subjective - Subjective Date of service: 12/04/20 Principal diagnosis: s/p ; PPD#1 Interval history: 30-year-old G1, P0 at 40+0 weeks presents in active labor with cervical dilatation of 4 to 5 cm intact. Her records are currently not av ailable for review. The patient progressed to complete complete +2 and post to deliver a live-born male infant with Apgars of 8 and 9 weight 7 pounds 0 ounces. After delivery of the head the shoulders delivered without difficulty. The infant was bulb suction. The cord was clamped and cut x2 and the was placed on the patient's abdomen. The placenta delivered spontaneously intact with a three- vessel cord. The patient sustained a midline perineal laceration second-degree. The site was injected with lidocaine 10 cc. The site was repaired in normal fashion with 2-0 Vicryl. Estimated blood loss of 100 mL. Patient reports: appetite normal, voiding normally, pain well controlled, flatus, ambulating normally : doing well Objective - Vital Signs Latest vital signs: Vital Signs Temp Pulse Resp BP Pulse Ox 12/04/20 08:06 98.6 F 84 18 111/73 99 12/03/20 23:23 98.2 F 87 20 110/67 98 12/03/20 15:39 98.4 F 78 20 102/66 97 Intake and Output 12/03/20 12/04/20 12/04/20 23:59 07:59 15:59 Intake Total 200 240 240 Output Total 200 Balance 0 240 240 Intake: Oral 200 240 240 Output: Urine 200 Void 200 Other: Total, Intake Amount 200 240 240 Total, Output Amount 200 # Voids Void 1 1 1 - Exam Breasts: Present: normal Cardiovascular: Present: Regular rate Lungs: Present: Normal air movement Abdomen: Present: soft Uterus: Present: firm, fundal height below umbilicus (U-3) Extremities: Present: normal Deep Tendon Reflex Grade: Normal +2 Incision: Present: other (2nd degree laceration, healing as expected) - Labs Labs: Abnormal lab results 12/03/20 Range/Units 15:45 Hgb 9.8 L (10.1-14.3) gm/dl
--- NOTE | 2020-12-04 13:53 | Discharge Summary ---
Providers - Providers Date of Admission: 12/03/20 03:11 Date of discharge: 12/05/20 Attending physician: LASHA ARCOS Primary care physician: MARIEL WALTER MD Hospitalization Reason for admission: active labor Delivery: Episiotomy: none Laceration: 2nd degree (healing as expected) Other procedures: none complications: none Discharge diagnosis: IUP at term delivered [place] baby: male Hospital course: 30-year-old G1, P0 at 40+0 weeks presents in active labor with cervical dilatation of 4 to 5 cm intact. Her records are currently not availab le for review. The patient progressed to complete complete +2 and post to deliver a live-born male infant with Apgars of 8 and 9 weight 7 pounds 0 ounces. After delivery of the head the shoulders delivered without difficulty. The was bulb suction. The cord was clamped and cut x2 and the infant was placed on the patient's abdomen. The placenta delivered spontaneously intact with a three- vessel cord. The patient sustained a midline perineal laceration second-degree. The site was injected with lidocaine 10 cc. The site was repaired in normal fashion with 2-0 Vicryl. Estimated blood loss of 100 mL. Condition at discharge: Good Disposition: DC-01 TO HOME OR SELFCARE - Discharge Diagnoses (1) Status post normal vaginal delivery Status: Acute (2) Anemia Status: Acute Qualifiers: Anemia type: iron deficiency Comment: Asymptomatic Plan - Discharge Medications Prescriptions: Ibuprofen [Motrin 600 MG tab] 600 mg PO Q8H 7 Days #21 tablet - Provider Discharge Summary Activity: routine, no sex for 6 weeks, no heavy lifting 4 weeks, no strenuous exercise Diet: other (Iron rich diet) Instructions: routine Additional instructions: [] Smoking cessation referral if applicable(refer to patient education folder for contact #) [] Refer to [facility] Booklet Call your doctor immediately for: * Fever > 100.5 * Heavy vaginal bleeding ( >1 pad per hour) * Severe persistent headache * Shortness of breath * Reddened, hot, painful area to leg or breast * Drainage or odor from incision. * Keep laceration site clean and dry at all times and follow doctor's ins tructions regarding bathing/showering - Follow up plan Follow up: MARIEL WALTER MD [Primary Care Provider] - 6 Weeks
[2020-12-05] MEDS: IBUPROFEN 600 MG TAB PO SCH (09:54)
[2020-12-05 14:55] VITALS: BP 134/86
== END 2020-12-05 14:30 | disposition home or self-care (01) | DRG 807 ==
LOC: TRG 21:19 → APU 21:21 → LD 12-03 01:27 → TRG 12-03 03:08 → LD 12-03 03:11 → OB 12-03 05:54
PROVIDERS: ADMIT Obstetrics & Gynecology; ATTEND Obstetrics & Gynecology
PROC: 10E0XZZ Delivery of Products of Conception, External Approach (ICD-10-PCS; principal; 2020-12-03)
PROC: 0KQM0ZZ Repair Perineum Muscle, Open Approach (ICD-10-PCS; 2020-12-03)
DX: O99.824 Streptococcus B carrier state complicating childbirth (principal); Z37.0 Single live birth; Z3A.40 40 weeks gestation of pregnancy; Z86.16 Personal history of COVID-19; O99.344 Other mental disorders complicating childbirth; F41.9 Anxiety disorder, unspecified; O70.1 Second degree perineal laceration during delivery; O90.81 Anemia of the puerperium; D50.9 Iron deficiency anemia, unspecified; O34.13 Maternal care for benign tumor of corpus uteri, third trimester; D25.9 Leiomyoma of uterus, unspecified
CPT/HCPCS: 36415; 85014; 85018; 85027; 86592; 86850; 86900; 86901; G0378; J0595